=== PATIENT | male | born 1935 | race Caucasian/White ===

== ENCOUNTER → 2016-12-06 | Outpatient (REF) ==
[~2016-12-06] MED LIST: ACIDOPHILUS PO; AMANTADINE HCL100 M1 PO; AMANTADINE HCL100 M2 PO; APRISO0.375 GM PO; ASPIRIN E.C. 8181 MG PO; AZILECT1 M1 PO; CENTRUM SILVER1 TA1 PO; CEPHALEXIN500 M1 PO; CLARITIN 1010 MG/TAB PO; COLACE 100100 MG/CAP PO; ECOTRIN325 MG PO; ELDEPRYL 5MG5 MG/CAP PO; EMSAM PO; EMSAM TD; ENALAPRIL PO; ENALAPRIL20 MG PO; FISH OIL CONC1000 MG PO; FISH OIL500 MG PO; FORTAMET500 MG PO; FUROSEMIDE PO; FUROSEMIDE20 MG PO; GLUCOPHAGE1000 MG PO; INSULIN 70/3100 U/ML IJ; IRON325 M1 PO; KLONOPIN 1MG1 MG PO; LANTUS100 U/ML SC; LASIX 20MG TABL20 MG PO; LIPITOR 80MG80 MG PO; LIPITOR80 MG PO; LOPRESSOR 225 MG/TAB PO; MEGA MEN PO; MEN'S MULTIVITA1 TAB PO; METFORMIN1000 MG PO; METOPROLOL25 MG PO; MIRALAX PA17 GM/Dose PO; NORCO 325 MG-51 TAB PO; NOVOLOG 100U100 U/M1; NOVOLOG 100U100 U/M1 SC; OMEGA 31000 MG PO; PLAVIX 75MG TAB75 MG PO; SELEGILINE HCL5 MG PO; SENOKOTXTRA17.2 MG PO; SEROQUEL 2525 MG/TAB PO; SINEMET 25/101 UDTAB PO; SYMMETREL100 MG PO; TOPROL XL50 MG PO; TYLENOL 325MG325 MG PO; TYLENOL 500MG500 MG PO; VASOTEC 5MG5 MG/TAB PO; VASOTEC20 MG PO; VITAMIN C BUFF500 MG PO; VITAMIN C500 MG PO; ZETIA 10MG TAB10 MG PO; ZETIA10 MG PO
== END ==
LOC: ZLAB.WCH 10:39
DX: Z01.89 Encounter for other specified special examinations (principal)